=== PATIENT | male | born 1955 | race Caucasian/White ===

== ENCOUNTER 2018-12-02 09:34 | Day surgery (SDC) | payer OTHER, MEDICAID ==
[2018-12-02] MEDS ORDERED: EPINEPHrine 1 MG INJ (10:25)
[2018-12-02] MEDS ORDERED: CARBACHOL 0.01% 1.5 ML OPH INJ (10:25)
[2018-12-02] MEDS ORDERED: SODIUM HYALURONATE 14 MG/ML SYG (10:26)
[2018-12-02] MEDS ORDERED: TOBRAMYCIN 0.3% 3.5 GM OPH OINT (10:26)
[2018-12-02] MEDS: MOXIFLOXACIN 0.5% 3 ML OPH OPER (10:27)
[2018-12-02] MEDS: TROPICAMIDE 1% 15 ML OPH OPER (10:27)
[2018-12-02] MEDS: PHENYLephrine 10% 5 ML OPH OPER (10:27)
[2018-12-02] MEDS: DICLOFENAC 0.1% 2.5 ML OPH OPER (10:27)
[2018-12-02] MEDS ORDERED: FENTAnyl 50 MCG/ML VIAL (11:59)
[2018-12-02] MEDS ORDERED: MIDAZOLAM 1 MG/ML 2 ML INJ (11:59)
[2018-12-02] MEDS ORDERED: FENTAnyl 50 MCG/ML VIAL IV (12:00)
[2018-12-02] MEDS ORDERED: MEPERIDINE 25 MG INJ IV (12:00)
[2018-12-02] MEDS ORDERED: LABETALOL HCL 20MG INJ IV (12:00)
[2018-12-02] MEDS ORDERED: hydrALAzine 20 MG INJ IV (12:00)
[2018-12-02] MEDS ORDERED: PROCHLORPERAZINE 10 MG INJ IV (12:00)
[2018-12-02] MEDS ORDERED: DIPHENHYDRAMINE 50 MG INJ IV (12:00)
[2018-12-02] MEDS ORDERED: OXYCODONE/ACETAMINOPHEN (5/325) TAB PO (12:00)
[2018-12-02] MEDS ORDERED: HYDROmorphONE 1 MG/5 ML IV SYRINGE IV ×3 (12:00)
[2018-12-02] MEDS: LIDOCAINE 1.5%/EPI MPF (SDV) 30 ML VIAL INJ (12:01)
[2018-12-02] MEDS: TETRACAINE 0.5% 4 ML OPH OPER (12:02)
[2018-12-02] MEDS: CARBACHOL 0.01% 1.5 ML OPH INJ IO (12:03)
[2018-12-02] MEDS: TOBRAMYCIN 0.3% 3.5 GM OPH OINT LEFT EYE (12:03)
[2018-12-02] MEDS: SODIUM HYALURONATE 14 MG/ML SYG IO (12:04)
[2018-12-02] MEDS ORDERED: HYDROmorphONE 2 MG/ML SYG (12:18)
[2018-12-02] MEDS: ACETAZOLAMIDE 250 MG TAB PO (14:12)
[2018-12-02] MEDS: ONDANSETRON 4 MG INJ IV (14:12)
== END 2018-12-02 14:31 | disposition home or self-care (01) ==
LOC: SDS 09:34
DX: H26.9 Unspecified cataract (principal); I10 Essential (primary) hypertension; E03.9 Hypothyroidism, unspecified; Z86.718 Personal history of other venous thrombosis and embolism
CPT/HCPCS: 66984